=== PATIENT | male | born 1975 | race Caucasian/White ===

== ENCOUNTER 2016-09-21 02:31 | Emergency (ER) | payer SELFPAY ==
[~2016-09-21] VITALS: Ht 188 cm; Wt 77.1 kg
[2016-09-21] MEDS ORDERED: TRAZ100T12 PO (02:57)
[2016-09-21] MEDS ORDERED: VARE1TAB21 PO (02:57)
[2016-09-21] MEDS ORDERED: FLUO20CA16 PO (02:57)
[2016-09-21 03:30] LABS: POTASSIUM ISTAT 4.1 mmol/L (3.5-5.0)
[2016-09-21] MEDS ORDERED: IV NORMAL SALINE 1000ML BAG 1,000 ML IV ONE (03:30)
--- NOTE | 2016-09-21 03:51 | PHYS DOC ---
Past Medical History Past Medical History: Depression Past Surgical History: No Surgical History Additional Information: CURRENTLY ON [employer]ANTIX Alcohol Use: None Drug Use: None Adult General Chief Complaint Chief Complaint: SYNCOPE HPI HPI Patient is a 41 year old male who presents with his mother for evaluation of syncope. He is dealing with a dental abscess, has started antibiotics per outside facility, and plans to follow-up with a dentist for this. He states he has decreased oral intake. His new medications are hydrocodone and Augmentin. He states he was feeling fatigued and lightheaded this evening, while he was standing, he passed out. He now feels slight fatigue, but is otherwise feeling normal. He denies lightheadedness, dizziness, vision changes, numbness, tingling , weakness, fever or chills, nausea or vomiting. He denies difficulty opening mouth, difficulty breathing, difficulty swallowing. Review of Systems Review of Systems Constitutional: Denies fever or chills [] Eyes: Denies change in visual acuity, redness, or eye pain [] HENT: Denies nasal congestion or sore throat [] Respiratory: Denies cough or shortness of breath [] Cardiovascular: No additional information not addressed in HPI [] GI: Denies abdominal pain, nausea, vomiting, bloody stools or diarrhea [] : Denies dysuria or hematuria [] Musculoskeletal: Denies back pain or joint pain [] Integument: Denies rash or skin lesions [] Neurologic: Denies headache, focal weakness or sensory changes [] Endocrine: Denies polyuria or polydipsia [] Current Medications Current Medications Current Medications Medications (Trade) Dose Ordered Sig/[facility] Start Time Stop Time Status Last Admin Dose Admin Sodium Chloride 1,000 ml @ 1,000 mls/hr 1X ONCE 09/21/16 03:30 09/21/16 04:29 09/21/16 03:31 1,000 MLS/HR Allergies Allergies Allergies Coded Allergies Type Severity Reaction Last Updated Verified No Known Drug Allergies 09/21/16 No Physical Exam Physical Exam Constitutional: Well developed, well nourished, no acute distress, non-toxic appearance. [] HENT: Normocephalic, atraumatic, bilateral external ears normal, oropharynx moist, no oral exudates, nose normal. Midline uvula, no trismus. Right lower gumline tenderness and swelling with some rubor to right lower face. Floor is nontender, no stridor. [] Eyes: PERRLA, EOMI. [] Neck: Normal range of motion, no tenderness, supple. [] Cardiovascular:Heart rate regular rhythm [] Lungs & Thorax: Bilateral breath sounds clear to auscultation [] Abdomen: Bowel sounds normal, soft, no tenderness. [] Skin: Warm, dry, no erythema, no rash. [] Back: Normal range of motion. [] Extremities: No tenderness, ROM intact, no edema. [] Neurologic: Alert and oriented X 3, normal motor function, normal sensory function, no focal deficits noted, cranial nerves II through XII intact. [] Psychologic: Affect normal, judgement normal, mood normal. [] Current Patient Data Vital Signs Vital Signs Date Time Temp Pulse Resp B/P (MAP) Pulse Ox O2 Delivery O2 Flow Rate FiO2 09/21/16 02:57 98.7 78 20 116/75 (89) 96 Room Air 98.7 Lab Values Laboratory Tests Test 09/21/16 03:26 POC Hemoglobin 15.3 g/dL (14-18) POC Hematocrit 45 % (37-52) POC Sodium 137 mmol/L (135-145) POC Potassium 4.1 mmol/L (3.5-5.0) POC Chloride 100 mmol/L (98-110) POC Total CO2 28 mmol/L (23-32) Anion Gap 14 mmol/L (6-14) POC Blood Urea Nitrogen 16 mg/dL (8-26) POC Creatinine 0.9 mg/dL (0.5-1.4) Glucose Level 134 mg/dL (70-99) H POC Ionized Calcium (Prieto) 1.05 mmol/L (1.13-1.32) L Laboratory Tests 09/21/16 03:26 Course & Med Decision Making Course & Med Decision Making Pertinent Labs and Imaging studies reviewed. (See chart for details) Laboratory evaluation is unremarkable. He is feeling better after medications and would like to go home. Return precautions given. He understands and agrees with plan. Dragon Disclaimer Dragon Disclaimer This electronic medical record was generated, in whole or in part, using a voice recognition dictation system. Departure Departure Impression: Primary Impression: Syncope Disposition: HOME, SELF-CARE Condition: STABLE Referrals: JENNIFER MCNALLY (PCP) Patient Instructions: Syncope, [id number] Additional Instructions: Continue your current medications. Follow-up with your primary care doctor and dentist. Return for any concerns. Problem Qualifiers Primary Impression: Syncope Syncope type: unspecified Qualified Codes: R55 - Syncope and collapse Javier MERCEDES MD Sep 21, 2016 03:51
[2016-09-21 04:17] VITALS: BP 108/63
[2016-09-21] MEDS ORDERED: HYDROcodone/APAP 5/325MG 1 TAB TABLET PO ONE (04:45)
== END 2016-09-21 04:35 | disposition home or self-care (01) ==
LOC: ER 02:31
DX: R55 Syncope and collapse (principal); K04.7 Periapical abscess without sinus
CPT/HCPCS: 80047; 96360; 99284; J7030